=== PATIENT | female | born 1970 | race Caucasian/White ===

== ENCOUNTER 2021-11-03 14:42 | Emergency (ER) | payer MEDICAID ==
[2021-11-03] MEDS ORDERED: Aspirin 81 MG Tab.Chew PO ONE (15:07)
[2021-11-03 15:32] LABS: ESTIMATED GFR 89 mL/min (>60)
== END 2021-11-03 16:40 | disposition home or self-care (01) ==
LOC: FB.ED 14:42
DX: J44.9 Chronic obstructive pulmonary disease, unspecified (principal); F41.9 Anxiety disorder, unspecified; Z72.0 Tobacco use; Z79.899 Other long term (current) drug therapy; Z20.822 Contact with and (suspected) exposure to COVID-19
CPT/HCPCS: 36415; 71046; 80053; 84484; 85025; 87635; 93005; 99285; A9270; U0002

== ENCOUNTER 2021-12-13 00:23 | Emergency (ER) | payer BC, MEDICAID ==
[2021-12-13] MEDS ORDERED: Ketorolac 30 MG/ML SDV IM ONE (00:46)
== END 2021-12-13 01:15 | disposition home or self-care (01) ==
LOC: FB.ED 00:23
DX: R07.9 Chest pain, unspecified (principal)
CPT/HCPCS: 93005; 96372; 99284; J1885

== ENCOUNTER 2022-06-08 16:57 | Emergency (ER) | payer BC ==
[2022-06-08] MEDS ORDERED: Ketorolac 30 MG/ML SDV ONE (17:20)
[2022-06-08] MEDS ORDERED: Ketorolac 30 MG/ML SDV IM ONE (17:20)
== END 2022-06-08 17:53 | disposition home or self-care (01) ==
LOC: FB.ED 16:57
DX: R07.89 Other chest pain (principal); M54.6 Pain in thoracic spine; M10.9 Gout, unspecified; Z79.899 Other long term (current) drug therapy
CPT/HCPCS: 96372; 99284; J1885; 99283

== ENCOUNTER 2024-08-16 22:51 | Emergency (ER) | payer MEDICAID ==
[2024-08-16] MEDS: Ketorolac 30 MG/ML SDV IM ONE (23:52)
[2024-08-16] MEDS: Ondansetron 4 MG Tab.DIS PO ONE (23:53)
== END 2024-08-16 23:58 | disposition home or self-care (01) ==
LOC: FB.ED 22:51
DX: K80.20 Calculus of gallbladder without cholecystitis without obstruction (principal); F17.210 Nicotine dependence, cigarettes, uncomplicated; Z79.899 Other long term (current) drug therapy
CPT/HCPCS: 96372; 99283; J1885; Q0162; 99284

== ENCOUNTER 2024-08-27 07:23 | Day surgery (SDC) | payer OTHER, MEDICAID ==
[2024-08-27] MEDS ORDERED: Rocuronium 100 MG/10 ML MDV IV ONE (07:24)
[2024-08-27] MEDS ORDERED: diphenhydrAMINE 50 MG/ML SDV IVPUSH ONE (07:24)
[2024-08-27] MEDS ORDERED: Ondansetron 4 MG/2 ML SDV IVPUSH ONE (07:24)
[2024-08-27] MEDS ORDERED: dexmedeTOMIDine HCl 200 MCG/2 ML SDV IV ONE (07:24)
[2024-08-27] MEDS ORDERED: Midazolam 1 MG/ML 2 ML SDV IV ONE (07:24)
[2024-08-27] MEDS ORDERED: Propofol 200 MG/20 ML SDV IV ONE (07:24)
[2024-08-27] MEDS ORDERED: Ketorolac 30 MG/ML SDV IVPUSH ONE (07:24)
[2024-08-27] MEDS ORDERED: Lactated Ringers 1,000 ML IV ONE (07:24)
[2024-08-27] MEDS ORDERED: Dexamethasone 4 MG/ML 5 ML MDV IVPUSH ONE (07:24)
[2024-08-27] MEDS ORDERED: fentaNYL 100 MCG/2 ML SDV IV ONE (07:24)
[2024-08-27] MEDS ORDERED: Succinylcholine 200 MG/10 ML MDV IV ONE (07:24)
[2024-08-27] MEDS ORDERED: HYDROmorphone 2 MG/ML SDV IV ONE (07:24)
[2024-08-27] MEDS ORDERED: Sodium Chloride 0.9% 10 ML Syringe FLUSH PRN (07:30)
[2024-08-27] MEDS ORDERED: Heparin Sodium 10 Units/ML 5 ML Syringe FLUSH ONE (10:30)
[2024-08-27] MEDS: Lactated Ringers 1,000 ML IV SCH (10:35)
[2024-08-27] MEDS: Heparin Sodium 10 Units/ML 5 ML Syringe FLUSH ONE (10:47)
[2024-08-27] MEDS: Bupivacaine 0.5%/EPINEPHrine 1:200,000 30 ML SDV INJECT ONE ×2 (10:51)
== END 2024-08-27 13:24 | disposition home or self-care (01) ==
LOC: FB.SDS 07:23
PROVIDERS: ATTEND Surgery
DX: K80.10 Calculus of gallbladder with chronic cholecystitis without obstruction (principal); F17.200 Nicotine dependence, unspecified, uncomplicated; Z79.84 Long term (current) use of oral hypoglycemic drugs; Z79.899 Other long term (current) drug therapy
CPT/HCPCS: 00790; 36556; 47562; 71045; 82947; 88304; A9270; J0330; J0665; J0690; J1100; J1171; J1200; J1642; J1885; J1920; J2250; J2405; J2704; J3010; J7120

== ENCOUNTER 2024-08-27 21:06 | Emergency (ER) | payer OTHER, MEDICAID | END 2024-08-27 22:00 | disposition home or self-care (01) | LOC: FB.ED 21:06 | DX: K91.840 Postprocedural hemorrhage of a digestive system organ or structure following a digestive system procedure (principal); Z79.899 Other long term (current) drug therapy; Z79.51 Long term (current) use of inhaled steroids; Z79.84 Long term (current) use of oral hypoglycemic drugs | CPT/HCPCS: 99283 ==